=== PATIENT | female | born 1960 ===

== ENCOUNTER 2016-07-31 18:33 | Emergency (ER) | payer MEDICAID ==
[2016-07-31 18:39] VITALS: RESP 20; TEMP 98; O2SAT 99
--- NOTE | 2016-07-31 20:55 | ED PDOC ---
HPI: Headache Time Seen by Provider: 07/31/16 20:52 Chief Complaint (Nursing): Headache Chief Complaint (Provider): h/a History Per: Patient Additional Complaint(s): pt w/ hx bca in remission 5 years, asthma, htn presents c/o intermittant h/a for the past month. pain is pressurelike, L frontal w/ associated sneezing, congestion and also disequilibrium. no associated fever, blurred vision, neck pain, cp, sob, abd pain, n/v, numbness, weakness to extremities. Past Medical History Reviewed: Historical Data, Nursing Documentation, Vital Signs Vital Signs: Last Vital Signs Temp 98.0 F 07/31/16 18:37 Pulse 70 07/31/16 18:37 Resp 20 07/31/16 18:37 BP 155/102 H 07/31/16 18:37 Pulse Ox 99 07/31/16 18:37 - Medical History PMH: Asthma, Colonic Polyps, HTN, Hypercholesterolemia, Osteoporosis Denies: Chronic Kidney Disease Other PMH: bca x 2. treated with chemotherapy - Family History Family History: States: Unknown Family Hx - Social History Current smoker - smoking cessation education provided: No Alcohol: None Drugs: Denies - Immunization History Hx Tetanus Toxoid Vaccination: No Hx Influenza Vaccination: No Hx Pneumococcal Vaccination: No - Home Medications Home Medications: Ambulatory Orders Medication Instructions Recorded Acetaminophen [Tylenol 325mg tab] 325 mg PO Q6 #20 tab 07/31/16 Albuterol HFA [Ventolin HFA 90 1 puff INH DAILY 07/31/16 mcg/actuation (8 g)] Alendronate [Fosamax] 1 tab PO DAILY 07/31/16 Anastrozole [Anastrozole] 1 tab PO DAILY 07/31/16 Bisoprolol/HCTZ [Ziac 5-6.25 mg] 1 tab PO DAILY 07/31/16 Budesonide/Formoterol Fumarate 1 10 INH DAILY 07/31/16 [Symbicort 160-4.5 Mcg Inhaler] - Allergies Allergies/Adverse Reactions: Allergies Allergy/AdvReac Type Severity Reaction Status Date / Time garlic Allergy RASH Verified 05/26/16 14:52 tash Allergy RASH Verified 05/26/16 14:52 [place] Allergy RASH Verified 05/26/16 14:52 Review of Systems ROS Statement: Except As Marked, All Systems Reviewed And Found Negative Neurological: Positive for: Headache, Other (disequilibrium). Negative for: Weakness, Numbness, Incoordination, Change in Speech, Confusion, Dizziness Physical Exam - Reviewed Nursing Documentation Reviewed: Yes Vital Signs Reviewed: Yes - Physical Exam Appears: Positive for: Well (happy, pleasant ), Non-toxic, No Acute Distress Head Exam: Positive for: ATRAUMATIC, NORMAL INSPECTION, NORMOCEPHALIC Skin: Positive for: Normal Color, Warm, DRY Eye Exam: Positive for: EOMI, Normal appearance, PERRL ENT: Positive for: Normal ENT Inspection, Other (L frontal sinus tenderness) Neck: Positive for: Normal, Painless ROM Cardiovascular/Chest: Positive for: Regular Rate, Rhythm Respiratory: Positive for: CNT, Normal Breath Sounds Gastrointestinal/Abdominal: Positive for: Normal Exam, Bowel Sounds, Soft. Negative for: Tenderness Extremity: Positive for: Normal ROM. Negative for: Tenderness Neurologic/Psych: Positive for: Alert, retrimmer II-XII, Oriented, Gait (steady). Negative for: Motor/Sensory Deficits - ECG O2 Sat by Pulse Oximetry: 99 Medical Decision Making Medical Decision Making: ct head read as neg. will d/c home to f/u pmd. Disposition - Clinical Impression Clinical Impression: Headache - Patient ED Disposition Is Patient to be Admitted: No - Disposition Referrals: [facility] [Outside] Disposition: Routine/Home Disposition Time: 22:20 Condition: GOOD Prescriptions: Acetaminophen [Tylenol 325mg tab] 325 mg PO Q6 #20 tab Instructions: Acute Headache (ED) Forms: [facility] ED School/Work Excuse
[2016-07-31 21:31] VITALS: BP 119/68
[2016-07-31 21:32] VITALS: PULSE 62
--- NOTE | 2016-07-31 21:56 | CT ---
EXAM: CT Head Without Intravenous Contrast. CLINICAL HISTORY: 55 years old, female; Pain; Headache; Headache not specified; Patient HX: HX of ca. Breast; Additional info: Headache, HX bca TECHNIQUE: Axial computed tomography images of the head/brain without intravenous contrast. This CT exam was performed using one or more of the following dose reduction techniques: automated exposure control, adjustment of the mA and/or kV according to patient size, and/or use of iterative reconstruction technique. Coronal and sagittal reformatted images were created and reviewed. COMPARISON: CT - HEAD^HEAD W WOUT (ADULT) 08/19/2010 1:12:53 PM FINDINGS: Brain: No intracranial hemorrhage. No mass. No definite edema. Ventricles: No hydrocephalus. Bones/joints: No acute fracture. Soft tissues: Unremarkable. Sinuses: No acute sinusitis. Mastoid air cells: No mastoid effusion. Orbits: Unremarkable as visualized. IMPRESSION: 1. No acute intracranial abnormality. If symptoms persist, suggest MRI for further evaluation. 2. Incidental/non-acute findings are described above.
== END 2016-07-31 22:32 | disposition home or self-care (01) ==
LOC: H.ER 18:33
DX: R51 Headache (principal); E78.00 Pure hypercholesterolemia, unspecified; I10 Essential (primary) hypertension

== ENCOUNTER 2016-08-19 20:33 | Emergency (ER) | payer MEDICAID ==
[2016-08-19 20:40] VITALS: BP 149/96; PULSE 59; TEMP 98.2
[2016-08-19] MEDS ORDERED: Albuterol-Ipratrop 3 mg / 0.5 (3 ml) UD ONE (21:00)
[2016-08-19] MEDS ORDERED: Albuterol 0.083% Inhal Sol (2.5 mg/3 mL) UD INH STA (21:00)
[2016-08-19 21:12] VITALS: RESP 16
--- NOTE | 2016-08-19 21:23 | ED PDOC ---
HPI: SOB/CHF/COPD Time Seen by Provider: 08/19/16 20:53 Chief Complaint (Nursing): Shortness Of Breath Chief Complaint (Provider): Wheezing History Per: Patient History/Exam Limitations: no limitations Onset/Duration Of Symptoms: Hrs Current Symptoms Are (Timing): Still Present Additional Complaint(s): 20:53 Elvira Pelaez is a 55 year old female with a history of asthma that presents to the ED with a chief complaint of wheezing. Patient states that a few hours ago, she began wheezing and used Advair, but her symptoms did not improve immediately, which prompted her ED visit. She reports that her symptoms have improved since onset, and she denies any fever or chest pain. Of Note: Patient states that she does not have a rescue inhaler. PMD: Toshia Holland Past Medical History Reviewed: Historical Data, Nursing Documentation, Vital Signs Vital Signs: Last Vital Signs Temp 98.2 F 08/19/16 20:38 Pulse 59 L 08/19/16 20:38 Resp 16 08/19/16 21:09 BP 149/96 H 08/19/16 20:38 Pulse Ox 97 08/19/16 21:26 - Medical History PMH: Asthma, Colonic Polyps, HTN, Hypercholesterolemia, Osteoporosis Denies: Chronic Kidney Disease - Family History Family History: States: Unknown Family Hx - Immunization History Hx Tetanus Toxoid Vaccination: No Hx Influenza Vaccination: No Hx Pneumococcal Vaccination: No - Home Medications Home Medications: Ambulatory Orders Medication Instructions Recorded Acetaminophen [Tylenol 325mg tab] 325 mg PO Q6 #20 tab 07/31/16 Albuterol HFA [Ventolin HFA 90 1 puff INH DAILY 07/31/16 mcg/actuation (8 g)] Alendronate [Fosamax] 1 tab PO DAILY 07/31/16 Anastrozole [Anastrozole] 1 tab PO DAILY 07/31/16 Bisoprolol/HCTZ [Ziac 5-6.25 mg] 1 tab PO DAILY 07/31/16 Budesonide/Formoterol Fumarate 1 10 INH DAILY 07/31/16 [Symbicort 160-4.5 Mcg Inhaler] Albuterol HFA [Ventolin HFA 90 2 puff IH [id number] PRN #60 puff 08/19/16 mcg/actuation (8 g)] - Allergies Allergies/Adverse Reactions: Allergies Allergy/AdvReac Type Severity Reaction Status Date / Time garlic Allergy RASH Verified 08/19/16 20:40 tash Allergy RASH Verified 08/19/16 20:40 [place] Allergy RASH Verified 08/19/16 20:40 Review of Systems Constitutional: Negative for: Fever Cardiovascular: Negative for: Chest Pain Respiratory: Positive for: Wheezing Physical Exam - Reviewed Nursing Documentation Reviewed: Yes Vital Signs Reviewed: Yes - Physical Exam Appears: Positive for: Non-toxic, No Acute Distress Head Exam: Positive for: ATRAUMATIC, NORMOCEPHALIC Skin: Positive for: Normal Color, Warm ENT: Positive for: Normal ENT Inspection Cardiovascular/Chest: Positive for: Regular Rate, Rhythm. Negative for: Murmur Respiratory: Positive for: Normal Breath Sounds. Negative for: Wheezing Neurologic/Psych: Positive for: Alert, Oriented - ECG O2 Sat by Pulse Oximetry: 97 (RA) Pulse Ox Interpretation: Normal Medical Decision Making Medical Decision Makin:00 Initial Impression: Exacerbation of Asthma Initial Plan: * Albuterol 2.5 mg INH * Peak Flow Pre/Post Tx * Reevaluation Scribe Attestation: Documented by Sun Baird, acting as a scribe for Rafi Louie PA-C. Provider Scribe Attestation: All medical record entries made by the Scribe were at my direction and personally dictated by me. I have reviewed the chart and agree that the record accurately reflects my personal performance of the history, physical exam, medical decision making, and the department course for this patient. I have also personally directed, reviewed, and agree with the discharge instructions and disposition. Disposition - Clinical Impression Clinical Impression: Asthma - Patient ED Disposition Is Patient to be Admitted: No - Disposition Disposition: Routine/Home Disposition Time: 21:38 Condition: STABLE Additional Instructions: Follow up with your PMD in 2 days for further evaluation. Prescriptions: Albuterol HFA [Ventolin HFA 90 mcg/actuation (8 g)] 2 puff IH [id number] PRN #60 puff PRN Reason: Wheezing Instructions: Asthma (ED)
[2016-08-19 21:45] VITALS: O2SAT 98
== END 2016-08-19 21:00 | disposition home or self-care (01) ==
LOC: H.ER 20:33
DX: J45.901 Unspecified asthma with (acute) exacerbation (principal); E78.00 Pure hypercholesterolemia, unspecified; I10 Essential (primary) hypertension

== ENCOUNTER 2016-08-28 20:44 | Emergency (ER) | payer MEDICAID ==
[2016-08-28 20:48] VITALS: BP 146/96; PULSE 56; RESP 16; TEMP 98.2; O2SAT 98
[2016-08-28] MEDS ORDERED: Albuterol-Ipratrop 3 mg / 0.5 (3 ml) UD INH STA (21:07)
[2016-08-28] MEDS ORDERED: Albuterol-Ipratrop 3 mg / 0.5 (3 ml) UD ONE (21:19)
--- NOTE | 2016-08-28 21:32 | ED PDOC ---
HPI: SOB/CHF/COPD Time Seen by Provider: 08/28/16 21:01 Chief Complaint (Nursing): Shortness Of Breath Chief Complaint (Provider): short of breath History Per: Patient History/Exam Limitations: no limitations Additional Complaint(s): 55yo female complaining of shortness of breath and pleuritic chest pain for the past 4 hours. She has a dry cough. No fever or palpitations. She used her inhaler without relief. Past Medical History Reviewed: Historical Data, Nursing Documentation, Vital Signs Vital Signs: Last Vital Signs Temp 98.2 F 08/28/16 20:47 Pulse 56 L 08/28/16 20:47 Resp 16 08/29/16 00:32 BP 146/96 H 08/28/16 20:47 Pulse Ox 98 08/28/16 23:52 - Medical History PMH: Asthma, Colonic Polyps, HTN, Hypercholesterolemia, Osteoporosis Denies: Chronic Kidney Disease - Family History Family History: States: Unknown Family Hx - Social History Drugs: Denies - Immunization History Hx Tetanus Toxoid Vaccination: No Hx Influenza Vaccination: No Hx Pneumococcal Vaccination: No - Home Medications Home Medications: Ambulatory Orders Medication Instructions Recorded Acetaminophen [Tylenol 325mg tab] 325 mg PO Q6 #20 tab 07/31/16 Albuterol HFA [Ventolin HFA 90 1 puff INH DAILY 07/31/16 mcg/actuation (8 g)] Alendronate [Fosamax] 1 tab PO DAILY 07/31/16 Anastrozole [Anastrozole] 1 tab PO DAILY 07/31/16 Bisoprolol/HCTZ [Ziac 5-6.25 mg] 1 tab PO DAILY 07/31/16 Budesonide/Formoterol Fumarate 1 10 INH DAILY 07/31/16 [Symbicort 160-4.5 Mcg Inhaler] Albuterol HFA [Ventolin HFA 90 2 puff IH [id number] PRN #60 puff 08/19/16 mcg/actuation (8 g)] Albuterol HFA [Ventolin HFA 90 2 puff IH [id number] PRN #1 bottle 08/28/16 mcg/actuation (8 g)] Prednisone 50 mg PO DAILY #4 tab 08/28/16 - Allergies Allergies/Adverse Reactions: Allergies Allergy/AdvReac Type Severity Reaction Status Date / Time garlic Allergy RASH Verified 08/19/16 20:40 [place]ash Allergy RASH Verified 08/19/16 20:40 [place] Allergy RASH Verified 08/19/16 20:40 Review of Systems ROS Statement: Except As Marked, All Systems Reviewed And Found Negative Constitutional: Negative for: Fever Cardiovascular: Negative for: Palpitations Respiratory: Positive for: Cough, Shortness of Breath, Pleuritic Pain. Negative for: Sputum Physical Exam - Reviewed Nursing Documentation Reviewed: Yes Vital Signs Reviewed: Yes - Physical Exam Appears: Positive for: Well, Non-toxic, No Acute Distress Head Exam: Positive for: ATRAUMATIC, NORMAL INSPECTION, NORMOCEPHALIC Skin: Positive for: Warm, Dry Eye Exam: Positive for: EOMI, PERRL ENT: Positive for: Normal ENT Inspection Cardiovascular/Chest: Positive for: Regular Rate, Rhythm Respiratory: Positive for: Normal Breath Sounds, Other (speaking full sentences) . Negative for: Rales, Rhonchi, Wheezing Gastrointestinal/Abdominal: Positive for: Soft. Negative for: Tenderness Extremity: Positive for: Normal ROM Neurologic/Psych: Positive for: Alert, Oriented - Laboratory Results Result Diagrams: 08/28/16 21:45 08/28/16 21:45 - ECG O2 Sat by Pulse Oximetry: 98 Medical Decision Making Medical Decision Makin EKG, CXR, duoneb, labs ordered. 23:49 EKG reviewed with sinus bradycardia at 48 rpm. Upon review of old EKGs, sinus dennise has been persistent in the past. Pt will be discharged routinely with Abx for Albuterol and Prednisone. Encouraged pt to schedule a follow-up with PMD within 2-3 days. Advised to return if condition persists or worsen. Condition is stable for discharge. Clinical Impression- Asthma Disposition - Clinical Impression Clinical Impression: Asthma - Disposition Referrals: Toshia Holland MD [Family Provider] - Disposition: Routine/Home Disposition Time: 23:45 Condition: IMPROVED Prescriptions: Albuterol HFA [Ventolin HFA 90 mcg/actuation (8 g)] 2 puff IH [id number] PRN #1 bottle PRN Reason: Shortness Of Breath Prednisone 50 mg PO DAILY #4 tab Instructions: Asthma (ED) Additional Comments - Additional Comments Additional Comments: Scribe Attestation: Documented by Trenton Rodriguez acting as a scribe for Flory Rodrigues MD. Scribe Attestation: All medical record entries made by the Scribe were at my direction and personally dictated by me. I have reviewed the chart and agree that the record accurately reflects my personal performance of the history, physical exam, medical decision making, and the department course for this patient. I have also personally directed, reviewed, and agree with the discharge instructions and disposition.
[2016-08-28 21:49] LABS: BASO # 0.1 K/uL (0.0-0.2); BASO % 0.6 % (0.0-2.0); EOS # 0.4 K/uL (0.0-0.7); EOS % 3.8 % (0.0-4.0); LYMPH # 4.6 K/uL (1.0-4.3); MEAN CELL VOLUME 85.4 fl (81.0-99.0); MEAN CORPUSCULAR HEMOGLOBIN 28.7 pg (27.0-31.0); MEAN CORPUSCULAR HGB CONC 33.6 g/dL (33.0-37.0); MEAN PLATELET VOLUME 11.9 fl (7.2-11.7); MONO # 0.6 K/uL (0.0-0.8); NEUT # 3.8 K/uL (1.8-7.0); NEUT % 40.6 % (50.0-75.0); RED CELL DISTRIBUTION WIDTH 13.3 % (11.5-14.5); WHITE BLOOD COUNT 9.5 K/uL (4.8-10.8)
[2016-08-28 22:04] LABS: ALB/GLOB RATIO 1.3 (1.0-2.1); ALKALINE PHOSPHATASE 81 U/L (38-126); ALT/SGPT 48 U/L (9-52); AST/SGOT 30 U/L (14-36); BILIRUBIN,TOTAL 0.3 mg/dl (0.2-1.3); BLOOD UREA NITROGEN 18 mg/dl (7-17); CALCIUM 10.2 mg/dL (8.4-10.2); CARBON DIOXIDE 32 mmol/L (22-30); CHLORIDE 99 mmol/L (98-107); GFR AFRICAN-AMERICAN > 60; GLUCOSE,RANDOM 91 mg/dL (65-105); POTASSIUM 3.9 MMOL/L (3.6-5.0); SODIUM 144 mmol/l (132-148); TOTAL PROTEIN 7.6 G/DL (6.3-8.2)
[2016-08-28 22:11] LABS: PARTIAL THROMBOPLASTIN TIME 25.8 SECONDS (23.3-32.5)
--- NOTE | 2016-08-29 08:23 | CARD ---
APPROVED REPORT EKG Measurement Heart [id number] <Conclusion> Sinus bradycardia Moderate voltage criteria for LVH, may be normal variant Borderline ECG
--- NOTE | 2016-08-29 08:36 | RAD ---
HISTORY: SOB COMPARISON: Comparison is made to the previous study dated 05/26/2016 FINDINGS: LUNGS: Mild pulmonary vascular congestion noted. PLEURA: No significant pleural effusion identified, no pneumothorax apparent. CARDIOVASCULAR: Normal. OSSEOUS STRUCTURES: No significant abnormalities. VISUALIZED UPPER ABDOMEN: Normal. OTHER FINDINGS: None. IMPRESSION: Suspicious for mild pulmonary vascular congestion.
== END 2016-08-28 23:45 | disposition home or self-care (01) ==
LOC: H.ER 20:44
DX: J45.909 Unspecified asthma, uncomplicated (principal); R07.81 Pleurodynia; I10 Essential (primary) hypertension; R05 Cough; R00.1 Bradycardia, unspecified

== ENCOUNTER 2017-05-20 20:59 | Emergency (ER) | payer MEDICAID ==
[2017-05-20 21:03] VITALS: BP 144/95; PULSE 59; RESP 21; TEMP 98.8; O2SAT 98
[2017-05-20] MEDS ORDERED: Albuterol-Ipratrop 3 mg / 0.5 (3 ml) UD INH STA ×2 (21:40→21:41)
[2017-05-20 22:12] LABS: BASO # 0.1 K/uL (0.0-0.2); BASO % 1.2 % (0.0-2.0); EOS # 0.2 K/uL (0.0-0.7); EOS % 2.5 % (0.0-4.0); LYMPH # 4.6 K/uL (1.0-4.3); LYMPH % 46.7 % (20.0-40.0); MEAN CELL VOLUME 86.1 fl (81.0-99.0); MEAN CORPUSCULAR HEMOGLOBIN 28.8 pg (27.0-31.0); MEAN CORPUSCULAR HGB CONC 33.4 g/dL (33.0-37.0); MEAN PLATELET VOLUME 12.4 fl (7.2-11.7); MONO # 0.7 K/uL (0.0-0.8); MONO % 7.6 % (0.0-10.0); NEUT # 4.1 K/uL (1.8-7.0); NRBC % 0.1 % (0.0-0.0); RBC 4.52 Mil/uL (3.80-5.20); RED CELL DISTRIBUTION WIDTH 14.1 % (11.5-14.5); WHITE BLOOD COUNT 9.8 K/uL (4.8-10.8)
[2017-05-20 22:24] LABS: BLOOD UREA NITROGEN 20 mg/dl (7-17); CALCIUM 9.6 mg/dL (8.4-10.2); GFR AFRICAN-AMERICAN > 60; GFR NON-AFRICAN AMERICAN 57
--- NOTE | 2017-05-21 00:02 | ED PDOC ---
HPI: SOB/CHF/COPD Time Seen by Provider: 05/20/17 21:16 Chief Complaint (Nursing): Shortness Of Breath Chief Complaint (Provider): shortness of breath History Per: Patient History/Exam Limitations: no limitations Onset/Duration Of Symptoms: Days (x1) Current Symptoms Are (Timing): Still Present Additional Complaint(s): 56 year old female with previous medical history of asthma, hypertension and hypercholesterolemia, who presents to the emergency department with a complaint of shortness of breath associated with chest tightness ongoing for 1 day. Patient stated she used her albuterol at home with no relief of symptoms. Denied any further medical complaints. PMD: Shawn Nicole MD Past Medical History Reviewed: Historical Data, Nursing Documentation, Vital Signs Vital Signs: Last Vital Signs Temp 98.8 F 05/20/17 21:01 Pulse 59 L 05/20/17 21:01 Resp 21 05/20/17 21:28 BP 144/95 H 05/20/17 21:01 Pulse Ox 98 05/21/17 00:08 - Medical History PMH: Asthma, Colonic Polyps, HTN, Hypercholesterolemia, Osteoporosis Denies: Chronic Kidney Disease - Surgical History Surgical History: Denies: No Surg Hx - Family History Family History: States: Unknown Family Hx - Social History Current smoker - smoking cessation education provided: No Alcohol: None Drugs: Denies - Immunization History Hx Tetanus Toxoid Vaccination: No Hx Influenza Vaccination: Yes Hx Pneumococcal Vaccination: No - Home Medications Home Medications: Ambulatory Orders Medication Instructions Recorded Albuterol HFA [Ventolin HFA 90 2 puff IH [id number] PRN 12/29/16 mcg/actuation (8 g)] Alendronate [Fosamax] 70 mg PO QD7 12/29/16 Anastrozole 1 mg PO DAILY 12/29/16 Atorvastatin [Lipitor] 20 mg PO DAILY 12/29/16 Bisoprolol/HCTZ [Ziac 10-6.25 mg] 1 tab PO DAILY 12/29/16 Fluticasone Nasal [Flonase] 1 spr NS DAILY PRN 12/29/16 Fluticasone/Salmeterol [Advair 1 each IH DAILY PRN 12/29/16 250-50 Diskus] Aspirin 325 mg PO DAILY 02/22/17 Calcium Carbonate/Vitamin D3 1 each PO DAILY 02/22/17 [Caltrate 600 + D Tablet] [id number]-[id number] Ethyl Esters 1 GM 1 gm PO DAILY 02/22/17 [Lovaza] Acetaminophen/Butalbital/Caf 1 tab PO DAILY PRN 03/26/17 [Fioricet] Albuterol HFA [Ventolin HFA 90 2 puff IH [id number] #1 puff 03/26/17 mcg/actuation (8 g)] Azithromycin [Zithromax Tri-Esteban] 500 mg PO DAILY #3 tablet 03/26/17 Albuterol HFA [Ventolin HFA 90 1 - 2 puff IH Q6 PRN #1 inhaler 05/21/17 mcg/actuation (8 g)] Methylprednisolone [Medrol Dosepak] 4 mg PO ASDIR #1 pkg 05/21/17 - Allergies Allergies/Adverse Reactions: Allergies Allergy/AdvReac Type Severity Reaction Status Date / Time garlic Allergy RASH Verified 05/20/17 21:03 tash Allergy RASH Verified 05/20/17 21:03 [id number] Allergy RASH Verified 05/20/17 21:03 Review of Systems ROS Statement: Except As Marked, All Systems Reviewed And Found Negative Cardiovascular: Positive for: Chest Pain (tightness) Respiratory: Positive for: Shortness of Breath Physical Exam - Reviewed Nursing Documentation Reviewed: Yes Vital Signs Reviewed: Yes - Physical Exam Appears: Positive for: Well, Non-toxic, No Acute Distress Head Exam: Positive for: ATRAUMATIC, NORMAL INSPECTION, NORMOCEPHALIC Skin: Positive for: Normal Color Eye Exam: Positive for: Normal appearance ENT: Positive for: Normal ENT Inspection Neck: Positive for: Normal, Painless ROM Cardiovascular/Chest: Positive for: Regular Rate, Rhythm, Chest Non Tender Respiratory: Positive for: Decreased Breath Sounds, Wheezing (expiratory bilaterally). Negative for: Normal Breath Sounds, Respiratory Distress Gastrointestinal/Abdominal: Positive for: Normal Exam, Soft. Negative for: Tenderness Extremity: Positive for: Normal ROM (upper/lower). Negative for: Pedal Edema ( bilateral), Calf Tenderness (bilateral) Neurologic/Psych: Positive for: Alert (x3), Oriented - Laboratory Results Result Diagrams: 05/20/17 22:06 05/20/17 22:06 - ECG O2 Sat by Pulse Oximetry: 98 (RA) Pulse Ox Interpretation: Normal Medical Decision Making Medical Decision Making: Initial Impression: Shortness of breath with asthma exacerbation Initial Plan: * BMP * CBC * Duoneb 3ml INH * Solu-medrol 125mg IVP Time: 106 --Upon provider reevaluation, patient is feeling improvement, medically stable and requires no further treatment in the ED at this time. Patient will be discharged home with Rx for Ventolin HFA and Medrol dose pack. Counseling was provided and all questions were answered regarding diagnosis and need for follow up with PMD. There is agreement to discharge plan. Return if symptoms persist or worsen. Clinical Impression: asthma exacerbation Scribe Attestation: Documented by Natalia Park, acting as a scribe for Hamilton Blake MD. Provider Scribe Attestation: All medical record entries made by the Scribe were at my direction and personally dictated by me. I have reviewed the chart and agree that the record accurately reflects my personal performance of the history, physical exam, medical decision making, and the department course for this patient. I have also personally directed, reviewed, and agree with the discharge instructions and disposition. Disposition - Clinical Impression Clinical Impression: Asthma - Patient ED Disposition Is Patient to be Admitted: No Counseled Patient/Family Regarding: Studies Performed, Diagnosis, Need For Followup, Rx Given - Disposition Disposition: Routine/Home Disposition Time: 01:07 Condition: IMPROVED Prescriptions: Albuterol HFA [Ventolin HFA 90 mcg/actuation (8 g)] 1 - 2 puff IH Q6 PRN #1 inhaler PRN Reason: Shortness Of Breath Methylprednisolone [Medrol Dosepak] 4 mg PO ASDIR #1 pkg Instructions: Asthma (ED) Forms: [employer] [employer] ([place])
== END 2017-05-21 01:39 | disposition home or self-care (01) ==
LOC: H.ER 20:59
DX: J45.901 Unspecified asthma with (acute) exacerbation (principal); E78.00 Pure hypercholesterolemia, unspecified; I10 Essential (primary) hypertension; J44.9 Chronic obstructive pulmonary disease, unspecified; M81.0 Age-related osteoporosis without current pathological fracture; Z79.82 Long term (current) use of aspirin
CPT/HCPCS: 80048; 85025; 96374; 99283; J2930

== ENCOUNTER 2017-06-21 21:36 | Emergency (ER) | payer MEDICAID ==
[2017-06-21 22:03] VITALS: BP 126/79; RESP 17; TEMP 98.5; O2SAT 96
[2017-06-21] MEDS ORDERED: guaiFENesin 200 mg/10 ml Syrup UD PO ONE (22:36)
[2017-06-21] MEDS ORDERED: Albuterol-Ipratrop 3 mg / 0.5 (3 ml) UD IH STA (22:36)
[2017-06-21] MEDS ORDERED: Albuterol-Ipratrop 3 mg / 0.5 (3 ml) UD ONE (22:40)
--- NOTE | 2017-06-22 00:49 | ED PDOC ---
HPI: SOB/CHF/COPD Time Seen by Provider: 06/21/17 22:09 Chief Complaint (Nursing): Shortness Of Breath Chief Complaint (Provider): Cough History Per: Patient History/Exam Limitations: no limitations Onset/Duration Of Symptoms: Days (x3) Current Symptoms Are (Timing): Still Present Initiating Event: Upper Respiratory Illness Associated Symptoms: denies: Fever, Leg/Calf Pain, Ankle/Leg Swelling Additional Complaint(s): 56 yo F w/ PMH of asthma and HTN, complains of cough, beginning 3 days ago and associated with chest pain only when she coughs. Otherwise: (-) fever, (-) chills, (-) chest pain on exertion, (-) dyspnea, (-) hemoptysis, (-) upper back pain, (-) travel, (-) recent prolonged immobility. PCP: Dr. Nicole Past Medical History Reviewed: Historical Data, Nursing Documentation, Vital Signs Vital Signs: Last Vital Signs Temp 98.5 F 06/21/17 22:01 Pulse 61 06/22/17 01:06 Resp 17 06/21/17 22:01 BP 126/79 06/21/17 22:01 Pulse Ox 96 06/22/17 01:06 - Medical History PMH: Asthma, Colonic Polyps, HTN, Hypercholesterolemia, Osteoporosis Denies: Chronic Kidney Disease - Family History Family History: States: Unknown Family Hx - Social History Current smoker - smoking cessation education provided: No Ex-Smoker (has not smoked in the last 12 months): No - Immunization History Hx Tetanus Toxoid Vaccination: No Hx Influenza Vaccination: Yes Hx Pneumococcal Vaccination: No - Home Medications Home Medications: Ambulatory Orders Medication Instructions Recorded Albuterol HFA [Ventolin HFA 90 2 puff IH [id number] PRN 12/29/16 mcg/actuation (8 g)] Alendronate [Fosamax] 70 mg PO QD7 12/29/16 Anastrozole 1 mg PO DAILY 12/29/16 Atorvastatin [Lipitor] 20 mg PO DAILY 12/29/16 Bisoprolol/HCTZ [Ziac 10-6.25 mg] 1 tab PO DAILY 12/29/16 Fluticasone Nasal [Flonase] 1 spr NS DAILY PRN 12/29/16 Fluticasone/Salmeterol [Advair 1 each IH DAILY PRN 12/29/16 250-50 Diskus] Aspirin 325 mg PO DAILY 02/22/17 Calcium Carbonate/Vitamin D3 1 each PO DAILY 02/22/17 [Caltrate 600 + D Tablet] Dvpwb-2-[id number] Ethyl Esters 1 GM 1 gm PO DAILY 02/22/17 [Lovaza] Acetaminophen/Butalbital/Caf 1 tab PO DAILY PRN 03/26/17 [Fioricet] Albuterol HFA [Ventolin HFA 90 2 puff IH [id number] #1 puff 03/26/17 mcg/actuation (8 g)] Azithromycin [Zithromax Tri-Esteban] 500 mg PO DAILY #3 tablet 03/26/17 Albuterol HFA [Ventolin HFA 90 1 - 2 puff IH Q6 PRN #1 inhaler 05/21/17 mcg/actuation (8 g)] Methylprednisolone [Medrol Dosepak] 4 mg PO ASDIR #1 pkg 05/21/17 Albuterol 0.083% [Albuterol 3 ml IH Q4 #100 neb 06/21/17 Sulfate 3 Ml] Guaifenesin 400 mg PO QID #20 tablet 06/21/17 Nebulizer [Aeroeclipse II] 1 each MC DAILY #1 each 06/21/17 - Allergies Allergies/Adverse Reactions: Allergies Allergy/AdvReac Type Severity Reaction Status Date / Time garlic Allergy RASH Verified 05/20/17 21:03 tash Allergy RASH Verified 05/20/17 21:03 [email or web address] Allergy RASH Verified 05/20/17 21:03 Curb-65 Severity Score - CURB-65 Severity Score Confusion: No Respiratory Rate greater than/equal to 30: No Systolic BP <90 or Diastolic BP less than/equal 60mmHg: No Age >64: No Curb-65 Score: 0 Percentage 30-day mortality: 0.6% Wells Criteria for PE - Wells Criteria for Pulmonary Embolism Heart Rate >100: No Hemoptysis: No Total Score: 0 Review of Systems ROS Statement: Except As Marked, All Systems Reviewed And Found Negative Constitutional: Negative for: Fever Cardiovascular: Positive for: Chest Pain (secondary to cough) Respiratory: Positive for: Cough. Negative for: Hemoptysis Musculoskeletal: Negative for: Leg Pain ((-) leg swelling) Physical Exam - Physical Exam Comments: GENERAL: Patient is AAOx3, in no acute distress, speaking full sentences, breathing well. SKIN: Warm, dry; (-) cyanosis. EYES: (-) conjunctival pallor. ENMT: Mucous membranes moist. Airway patent: (-) stridor. Pharynx: (-) swelling, (-) erythema, (-) exudate. NECK: (-) tenderness, (-) stiffness, (-) lymphadenopathy. CHEST AND RESPIRATORY: (-) rhonchi, (-) rales, (-) wheezes, (-) pleural rub; breath sounds equal bilaterally. HEART AND CARDIOVASCULAR: (-) irregularity; (-) murmur, (-) gallop. ABDOMEN AND GI: Soft; (-) tenderness. EXTREMITIES: (-) deformity; (-) edema. NEURO AND PSYCH: Mental status as above. Cranial nerves grossly intact; strength symmetric. - ECG ECG Rhythm: Positive for: Sinus Rhythm Rate: 61 O2 Sat by Pulse Oximetry: 96 (RA) Pulse Ox Interpretation: Normal Medical Decision Making Medical Decision Makin Initial plan: * Duonebs 3mL IH * Robitussing 400mg PO * Re-eval On re-evaluation patient is feeling better and will be discharged home. Advised to follow up with primary care physician in 1-2 days without fail. Advised to take medication as prescribed. Return to the emergency room at any time for any new or worsening symptoms. Patient states she fully agrees with and understands discharge instructions. States that she agrees with the plan and disposition. Verbalized and repeated discharge instructions and plan. I have given the patient opportunity to ask any additional questions. Scribe Attestation: Documented by Janae Jones acting as a scribe for Lisa Moser PA-C. MD Scribe Attestation: All medical record entries made by the Scribe were at my direction and personally dictated by me. I have reviewed the chart and agree that the record accurately reflects my personal performance of the history, physical exam, medical decision making, and the department course for this patient. I have also personally directed, reviewed, and agree with the discharge instructions and disposition. Disposition - Clinical Impression Clinical Impression: Cough - Patient ED Disposition Is Patient to be Admitted: No Counseled Patient/Family Regarding: Diagnosis, Need For Followup, Rx Given - Disposition Disposition: Routine/Home Disposition Time: 22:15 Condition: STABLE Additional Instructions: Thank you for letting us take care of you today. You were treated for cough. The emergency medical care you received today was directed at your acute symptoms. If you were prescribed any medication, please fill it and take as directed. It may take several days for your symptoms to resolve. Return to the Emergency Department if your symptoms worsen, do not improve, or if you have any other problems. Please contact your doctor in 2 days for re-evaluation and follow up / or call one of the physicians/clinics you have been referred to that are listed on the Patient Visit Information form that is included in your discharge packet. Bring any paperwork you were given at discharge with you along with any medications you are taking to your follow up visit. Our treatment cannot replace ongoing medical care by a primary care provider (PCP) outside of the emergency department. Thank you for allowing the [email or web address] team to be part of your care today. 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
[2017-06-22 00:53] VITALS: PULSE 61
== END 2017-06-21 23:15 | disposition home or self-care (01) ==
LOC: H.ER 21:36
DX: J06.9 Acute upper respiratory infection, unspecified (principal); I10 Essential (primary) hypertension; E78.00 Pure hypercholesterolemia, unspecified; Z79.82 Long term (current) use of aspirin

== ENCOUNTER 2018-02-19 15:21 | Emergency (ER) | payer MEDICAID ==
[2018-02-19] MEDS ORDERED: Albuterol-Ipratrop 3 mg / 0.5 (3 ml) UD ONE (16:26)
--- NOTE | 2018-02-19 16:26 | ED PDOC ---
HPI: SOB/CHF/COPD Time Seen by Provider: 02/19/18 15:43 Chief Complaint (Nursing): Shortness Of Breath Chief Complaint (Provider): Shortness Of Breath History Per: Patient History/Exam Limitations: no limitations Onset/Duration Of Symptoms: Days (x7) Associated Symptoms: Chest Pain (intermittent). denies: Fever Additional Complaint(s): 57 years old female with history of asthma, hypertension, cervical cancer and breast cancer presents to ER for evaluation of shortness of breath ongoing for a week. Patient reports worsening of symptoms when laying down or ambulating. She reports associated cough and chest pain intermittently. Patient states she has seen a Wallpaper Printer Helper before. She denies any leg swelling, fever or headache, having chemotherapy or radiation. PMD: Shawn Nicole Past Medical History Reviewed: Historical Data, Nursing Documentation, Vital Signs Vital Signs: Last Vital Signs Temp 98.7 F 02/19/18 15:34 Pulse 97 H 02/19/18 15:34 Resp 16 02/19/18 15:34 BP 168/105 H 02/19/18 15:34 Pulse Ox 97 02/19/18 15:34 - Medical History PMH: Asthma, Colonic Polyps, HTN, Hypercholesterolemia, Osteoporosis Denies: Chronic Kidney Disease Other PMH: Cervical cancer. Breast cancer - Surgical History Other surgeries: Mastectomy of left breast. - Family History Family History: States: Unknown Family Hx - Immunization History Hx Tetanus Toxoid Vaccination: No Hx Influenza Vaccination: Yes Hx Pneumococcal Vaccination: No - Home Medications Home Medications: Ambulatory Orders Medication Instructions Recorded Alendronate [Fosamax] 70 mg PO QD7 12/29/16 Anastrozole 1 mg PO DAILY 12/29/16 Atorvastatin [Lipitor] 20 mg PO DAILY 12/29/16 Bisoprolol/HCTZ [Ziac 10-6.25 mg] 1 tab PO DAILY 12/29/16 Fluticasone Nasal [Flonase] 1 spr NS DAILY PRN 12/29/16 Fluticasone/Salmeterol [Advair 1 each IH DAILY PRN 12/29/16 250-50 Diskus] Aspirin 325 mg PO DAILY 02/22/17 Calcium Carbonate/Vitamin D3 1 each PO DAILY 02/22/17 [Caltrate 600 + D Tablet] Fpdeg-1-Lzch Ethyl Esters 1 GM 1 gm PO DAILY 02/22/17 [Lovaza] Acetaminophen/Butalbital/Caf 1 tab PO DAILY PRN 03/26/17 [Fioricet] Albuterol HFA [Ventolin HFA 90 2 puff IH [id number] #1 puff 03/26/17 mcg/actuation (8 g)] Azithromycin [Zithromax Tri-Esteban] 500 mg PO DAILY #3 tablet 03/26/17 Albuterol HFA [Ventolin HFA 90 1 - 2 puff IH Q6 PRN #1 inhaler 05/21/17 mcg/actuation (8 g)] Albuterol 0.083% [Albuterol 3 ml IH Q4 #100 neb 06/21/17 Sulfate 3 Ml] Guaifenesin 400 mg PO QID #20 tablet 06/21/17 Nebulizer [Aeroeclipse II] 1 each MC DAILY #1 each 06/21/17 Albuterol HFA [Ventolin HFA 90 2 puff IH [id number] PRN #1 inhaler 02/19/18 mcg/actuation (8 g)] Methylprednisolone [Medrol Dosepak] 4 mg PO ASDIR #1 pkg 02/19/18 - Allergies Allergies/Adverse Reactions: Allergies Allergy/AdvReac Type Severity Reaction Status Date / Time garlic Allergy RASH Verified 02/19/18 15:25 tash Allergy RASH Verified 02/19/18 15:25 [email or web address] Allergy RASH Verified 02/19/18 15:25 Wells Criteria for PE - Wells Criteria for Pulmonary Embolism Clinical Signs and Symptoms of DVT: No P.E is #1 Diagnosis, or Equally Likely: No Heart Rate >100: No Immobilization at least 3 days;Surgery previous 4 weeks: No Previous, objectively diagnosed PE or DVT: No Hemoptysis: No Malignancy w/treatment within 6 months, or palliative: No Total Score: 0 Review of Systems ROS Statement: Except As Marked, All Systems Reviewed And Found Negative Constitutional: Negative for: Fever Cardiovascular: Positive for: Chest Pain Respiratory: Positive for: Cough, Shortness of Breath Musculoskeletal: Negative for: Leg Pain (or swelling) Neurological: Negative for: Headache Physical Exam - Reviewed Nursing Documentation Reviewed: Yes Vital Signs Reviewed: Yes - Physical Exam Appears: Positive for: Non-toxic, No Acute Distress Head Exam: Positive for: ATRAUMATIC, NORMOCEPHALIC Skin: Positive for: Normal Color, Warm, Dry Eye Exam: Positive for: Normal appearance, EOMI, PERRL Cardiovascular/Chest: Positive for: Regular Rate, Rhythm. Negative for: Murmur Respiratory: Positive for: Normal Breath Sounds. Negative for: Wheezing, Respiratory Distress Gastrointestinal/Abdominal: Positive for: Normal Exam, Soft. Negative for: Tenderness Back: Positive for: Normal Inspection. Negative for: L CVA Tenderness, R CVA Tenderness Extremity: Positive for: Normal ROM. Negative for: Pedal Edema, Swelling Neurologic/Psych: Positive for: Alert, Oriented (x3) - Laboratory Results Result Diagrams: 02/19/18 16:23 02/19/18 16:23 - ECG ECG Rhythm: Positive for: Normal QRS, Sinus Rhythm (normal), ST/T Changes (uns pecific) Rate: 96 O2 Sat by Pulse Oximetry: 97 (RA) Pulse Ox Interpretation: Normal - Progress Re-evaluation Time: 20:30 Condition: Re-examined, Improved Medical Decision Making Medical Decision Making: Time: 1557 Initial Impression: Shortness of breath. Differential includes but not limited to asthma exacerbation, PE, ACS and CHF. Initial Plan: --EKG --BMP --BTN --Troponin I --Urine dipstick --CBC --D Dimer --Duoneb 3 ml INH --Medrol 125 mg IVP --Peak flow pre/post treatment Scribe Attestation: Documented by Briseyda Burrows, acting as a scribe for Rula Garcia MD. Provider Scribe Attestation: All medical record entries made by the Scribe were at my direction and personally dictated by me. I have reviewed the chart and agree that the record accurately reflects my personal performance of the history, physical exam, medical decision making, and the department course for this patient. I have also personally directed, reviewed, and agree with the discharge instructions and disposition. Disposition - Clinical Impression Clinical Impression: Bronchitis - Patient ED Disposition Is Patient to be Admitted: No Doctor Will See Patient In The: Office Counseled Patient/Family Regarding: Studies Performed, Diagnosis, Need For Followup - Disposition Referrals: Shawn Nicole MD [Family Provider] - Disposition: Routine/Home Disposition Time: 20:30 Condition: GOOD Additional Instructions: PERNELL VAIL, thank you for letting us take care of you today. Your provider was Rula Garcia MD and you were treated for SOB. The emergency medical care you received today was directed at your acute symptoms. If you were prescribed any medication, please fill it and take as directed. It may take several days for your symptoms to resolve. Return to the Emergency Department if your symptoms worsen, do not improve, or if you have any other problems. Please contact your doctor or call one of the physicians/clinics you have been referred to that are listed on the Patient Visit Information form that is included in your discharge packet. Bring any paperwork you were given at discharge with you along with any medications you are taking to your follow up visit. Our treatment cannot replace ongoing medical care by a primary care provider outside of the emergency department. Thank you for [facility] to be part of your care today. If you had an X-Ray or CT scan: A Radiologist will review the ED reading if any change in treatment is needed we will contact you. If you had a blood, urine, or wound culture: It will take several days for the results, if any change in treatment is needed we will contact you. If you had an STI test: It will take 48 hours for the results. Please call after 1 week if you have not heard back. Prescriptions: Albuterol HFA [Ventolin HFA 90 mcg/actuation (8 g)] 2 puff IH [id number] PRN #1 inhaler PRN Reason: Wheezing Methylprednisolone [Medrol Dosepak] 4 mg PO ASDIR #1 pkg Instructions: Acute Bronchitis
[2018-02-19 16:27] LABS: BASO # 0.1 K/uL (0.0-0.2); BASO % 0.8 % (0.0-2.0); EOS # 0.2 K/uL (0.0-0.7); EOS % 2.4 % (0.0-4.0); HEMOGLOBIN 13.7 g/dL (12.0-16.0); LYMPH # 3.5 K/uL (1.0-4.3); MEAN CELL VOLUME 85.6 fl (81.0-99.0); MEAN CORPUSCULAR HEMOGLOBIN 28.7 pg (27.0-31.0); MEAN CORPUSCULAR HGB CONC 33.6 g/dL (33.0-37.0); MEAN PLATELET VOLUME 11.3 fl (7.2-11.7); MONO # 0.5 K/uL (0.0-0.8); MONO % 6.3 % (0.0-10.0); NEUT # 3.9 K/uL (1.8-7.0); NEUT % 47.5 % (50.0-75.0); RBC 4.75 Mil/uL (3.80-5.20); RED CELL DISTRIBUTION WIDTH 13.5 % (11.5-14.5); WHITE BLOOD COUNT 8.2 K/uL (4.8-10.8)
[2018-02-19] MEDS: Albuterol-Ipratrop 3 mg / 0.5 (3 ml) UD INH STA (16:28)
[2018-02-19 16:35] LABS: BLOOD UREA NITROGEN 13 mg/dl (7-17); CALCIUM 9.6 mg/dL (8.4-10.2); GFR NON-AFRICAN AMERICAN > 60
[2018-02-19 16:48] LABS: B-TYPE NATRIURETIC PEPTIDE 57.2 pg/ml (0-900)
[2018-02-19 18:13] VITALS: BP 140/80; RESP 18; TEMP 98.5
[2018-02-19 20:58] VITALS: PULSE 96; O2SAT 97
--- NOTE | 2018-02-20 06:45 | CARD ---
APPROVED REPORT Date of service: 02/19/2018 EKG Measurement Heart [id number] CT 134P43 [id number] <Conclusion> Normal sinus rhythm ST & T wave abnormality, consider inferior ischemia Abnormal ECG
== END 2018-02-19 21:00 | disposition home or self-care (01) ==
LOC: H.ER 15:21
DX: J40 Bronchitis, not specified as acute or chronic (principal); E78.00 Pure hypercholesterolemia, unspecified; I10 Essential (primary) hypertension; Z79.899 Other long term (current) drug therapy; Z85.3 Personal history of malignant neoplasm of breast; Z85.41 Personal history of malignant neoplasm of cervix uteri; J45.909 Unspecified asthma, uncomplicated
CPT/HCPCS: 80048; 83880; 84484; 85025; 85378; 93005; 94640; 96374; 99283; J2930

== ENCOUNTER 2018-05-21 14:30 | Emergency (ER) | payer MEDICAID ==
[2018-05-21 14:43] VITALS: RESP 16
[2018-05-21] MEDS ORDERED: Albuterol-Ipratrop 3 mg / 0.5 (3 ml) UD INH STA (15:33)
--- NOTE | 2018-05-21 15:57 | ED PDOC ---
HPI: Chest Pain Time Seen by Provider: 05/21/18 15:10 Chief Complaint (Nursing): Chest Pain Chief Complaint (Provider): Chest Pain History Per: Patient History/Exam Limitations: no limitations Onset/Duration Of Symptoms: Days (x4) Current Symptoms Are (Timing): Still Present Additional Complaint(s): 57 year old female with pmHx of asthma, HTN, and HCL, arrives to ED for an evaluation of left-sided chest pain for 4 days. Patient states chest pain is associated with her asthma attacks and have been using her inhaler with some alleviation. She reports similar symptoms in the past, however, states that today felt different as if she's "getting punched". Otherwise, patient denies fever, chills, or cough. PCP: Dr. Shawn Nicole Past Medical History Reviewed: Historical Data, Nursing Documentation, Vital Signs Vital Signs: Last Vital Signs Temp 97.7 F 05/21/18 14:35 Pulse 67 05/21/18 14:35 Resp 16 05/21/18 14:35 BP 185/85 H 05/21/18 14:35 Pulse Ox 96 05/21/18 14:35 - Medical History PMH: Asthma, Colonic Polyps, HTN, Hypercholesterolemia, Osteoporosis Denies: Chronic Kidney Disease - Family History Family History: States: Unknown Family Hx - Immunization History Hx Tetanus Toxoid Vaccination: No Hx Influenza Vaccination: Yes Hx Pneumococcal Vaccination: No - Home Medications Home Medications: Ambulatory Orders Medication Instructions Recorded Alendronate [Fosamax] 70 mg PO QD7 12/29/16 Anastrozole 1 mg PO DAILY 12/29/16 Atorvastatin [Lipitor] 20 mg PO DAILY 12/29/16 Bisoprolol/HCTZ [Ziac 10-6.25 mg] 1 tab PO DAILY 12/29/16 Fluticasone Nasal [Flonase] 1 spr NS DAILY PRN 12/29/16 Fluticasone/Salmeterol [Advair 1 each IH DAILY PRN 12/29/16 250-50 Diskus] Aspirin 325 mg PO DAILY 02/22/17 Calcium Carbonate/Vitamin D3 1 each PO DAILY 02/22/17 [Caltrate 600 + D Tablet] Hobsn-8-Mgro Ethyl Esters 1 GM 1 gm PO DAILY 02/22/17 [Lovaza] Acetaminophen/Butalbital/Caf 1 tab PO DAILY PRN 03/26/17 [Fioricet] Albuterol HFA [Ventolin HFA 90 2 puff IH [id number] #1 puff 03/26/17 mcg/actuation (8 g)] Azithromycin [Zithromax Tri-Esteban] 500 mg PO DAILY #3 tablet 03/26/17 Albuterol HFA [Ventolin HFA 90 1 - 2 puff IH Q6 PRN #1 inhaler 05/21/17 mcg/actuation (8 g)] Albuterol 0.083% [Albuterol 3 ml IH Q4 #100 neb 06/21/17 Sulfate 3 Ml] Guaifenesin 400 mg PO QID #20 tablet 06/21/17 Nebulizer [Aeroeclipse II] 1 each MC DAILY #1 each 06/21/17 Albuterol HFA [Ventolin HFA 90 2 puff IH [id number] PRN #1 inhaler 02/19/18 mcg/actuation (8 g)] Methylprednisolone [Medrol Dosepak] 4 mg PO ASDIR #1 pkg 02/19/18 - Allergies Allergies/Adverse Reactions: Allergies Allergy/AdvReac Type Severity Reaction Status Date / Time garlic Allergy RASH Verified 05/21/18 14:33 tash Allergy RASH Verified 05/21/18 14:33 cabazon Allergy RASH Verified 05/21/18 14:33 Review of Systems ROS Statement: Except As Marked, All Systems Reviewed And Found Negative Constitutional: Negative for: Fever, Chills Cardiovascular: Positive for: Chest Pain (left-sided) Respiratory: Negative for: Cough Physical Exam - Reviewed Nursing Documentation Reviewed: Yes Vital Signs Reviewed: Yes - Physical Exam Appears: Positive for: Non-toxic, No Acute Distress Head Exam: Positive for: ATRAUMATIC, NORMAL INSPECTION, NORMOCEPHALIC Skin: Positive for: Normal Color Eye Exam: Positive for: Normal appearance, EOMI, PERRL ENT: Positive for: Normal ENT Inspection. Negative for: Pharyngeal Erythema Neck: Positive for: Normal, Supple Cardiovascular/Chest: Positive for: Regular Rate, Rhythm, Chest Non Tender Respiratory: Positive for: Normal Breath Sounds. Negative for: Wheezing, Respiratory Distress Gastrointestinal/Abdominal: Positive for: Normal Exam, Soft. Negative for: Tenderness Back: Positive for: Normal Inspection. Negative for: L CVA Tenderness, R CVA Tenderness Extremity: Positive for: Normal ROM (upper/lower). Negative for: Pedal Edema, Calf Tenderness Neurologic/Psych: Positive for: Alert, credit and loan collections supervisor II-XII (grossly intact), Oriented, Other (speaking full sentences). Negative for: Motor/Sensory Deficits, Aphasia - Laboratory Results Result Diagrams: 05/21/18 15:35 05/21/18 15:35 - ECG O2 Sat by Pulse Oximetry: 96 (RA) Pulse Ox Interpretation: Normal Medical Decision Making Medical Decision Making: Time: 153 Initial Plan: * EKG * Labs * CXR * Duoneb 3ml INH Time: 1557 --EKG: NSR at 69 BMP. No STT changes. Accession No. : [id number] Patient Name / ID : YARED GIMENEZ / [id number] Exam Date : 05/21/2018 15:42:34 ( Approved ) Study Comment : Sex / Age : F / 57Y Creator : Brayan Briscoe MD Dictator : Brayan Briscoe MD Sewer Bricklayer : Wirer Helper : Brayan Briscoe MD Approver2 : Report Date : 05/21/2018 16:36:19 My Comment : Date of service: 05/21/2018 HISTORY: SOB, CP COMPARISON: 08/28/2016 TECHNIQUE: Chest PA and lateral FINDINGS: LUNGS: No active pulmonary disease. PLEURA: No significant pleural effusion identified. No pneumothorax apparent. CARDIOVASCULAR: No aortic atherosclerotic calcification present. Normal cardiac size. No pulmonary vascular congestion. OSSEOUS STRUCTURES: No significant abnormalities. VISUALIZED UPPER ABDOMEN: Normal. OTHER FINDINGS: Surgical clips over left lateral chest wall, possibly related to breast/axilla. IMPRESSION: No active disease. Scribe Attestation: Documented by Natalia Park, acting as a scribe for Karis Rodrigues MD. Provider Scribe Attestation: All medical record entries made by the Scribe were at my direction and personally dictated by me. I have reviewed the chart and agree that the record accurately reflects my personal performance of the history, physical exam, medical decision making, and the department course for this patient. I have also personally directed, reviewed, and agree with the discharge instructions and disposition. Disposition - Disposition Forms: [place] ([place])
[2018-05-21] MEDS ORDERED: Albuterol-Ipratrop 3 mg / 0.5 (3 ml) UD ONE (16:09)
--- NOTE | 2018-05-21 16:39 | RAD ---
Date of service: 05/21/2018 HISTORY: SOB, CP COMPARISON: 08/28/2016 TECHNIQUE: Chest PA and lateral FINDINGS: LUNGS: No active pulmonary disease. PLEURA: No significant pleural effusion identified. No pneumothorax apparent. CARDIOVASCULAR: No aortic atherosclerotic calcification present. Normal cardiac size. No pulmonary vascular congestion. OSSEOUS STRUCTURES: No significant abnormalities. VISUALIZED UPPER ABDOMEN: Normal. OTHER FINDINGS: Surgical clips over left lateral chest wall, possibly related to breast/axilla. IMPRESSION: No active disease.
[2018-05-21 16:40] LABS: BASO # 0.1 K/uL (0.0-0.2); BASO % 0.7 % (0.0-2.0); EOS # 0.1 K/uL (0.0-0.7); EOS % 1.8 % (0.0-4.0); HEMOGLOBIN 13.6 g/dL (12.0-16.0); LYMPH # 3.1 K/uL (1.0-4.3); LYMPH % 39.3 % (20.0-40.0); MEAN CELL VOLUME 85.4 fl (81.0-99.0); MEAN CORPUSCULAR HEMOGLOBIN 28.4 pg (27.0-31.0); MEAN CORPUSCULAR HGB CONC 33.2 g/dL (33.0-37.0); MEAN PLATELET VOLUME 12.3 fl (7.2-11.7); MONO # 0.5 K/uL (0.0-0.8); MONO % 6.6 % (0.0-10.0); NEUT # 4.1 K/uL (1.8-7.0); NEUT % 51.6 % (50.0-75.0); NRBC % 0.1 % (0.0-0.0); RBC 4.78 Mil/uL (3.80-5.20); RED CELL DISTRIBUTION WIDTH 13.8 % (11.5-14.5); WHITE BLOOD COUNT 7.9 K/uL (4.8-10.8)
[2018-05-21 16:43] LABS: ALB/GLOB RATIO 1.3 (1.0-2.1); ALBUMIN 4.3 g/dL (3.5-5.0); ALT/SGPT 59 U/L (9-52); AST/SGOT 33 U/L (14-36); BLOOD UREA NITROGEN 18 mg/dl (7-17); CALCIUM 9.6 mg/dL (8.4-10.2); GFR NON-AFRICAN AMERICAN > 60
[2018-05-21 16:49] LABS: PROTHROMBIN TIME 11.9 Seconds (9.8-13.1)
[2018-05-21 16:52] LABS: PARTIAL THROMBOPLASTIN TIME 36.1 Seconds (25.6-37.1)
[2018-05-21 17:10] LABS: D DIMER < 200 ng/mlDDU (0-230)
--- NOTE | 2018-05-21 17:28 | ED PDOC ---
- Laboratory Results Result Diagrams: 05/21/18 15:35 05/21/18 15:35 Lab Results: PT 11.9 Seconds (9.8-13.1) 05/21/18 15:35 INR 1.0 05/21/18 15:35 APTT 36.1 Seconds (25.6-37.1) 05/21/18 15:35 D-Dimer, Quantitative < 200 ng/mlDDU (0-230) 05/21/18 15:35 Troponin I < 0.0120 ng/mL (0.00-0.120) 05/21/18 15:35 Total Bilirubin 0.3 mg/dl (0.2-1.3) 05/21/18 15:35 AST 33 U/L (14-36) 05/21/18 15:35 ALT 59 U/L (9-52) H D 05/21/18 15:35 Alkaline Phosphatase 83 U/L (38-126) 05/21/18 15:35 Total Protein 7.5 G/DL (6.3-8.2) 05/21/18 15:35 Albumin 4.3 g/dL (3.5-5.0) 05/21/18 15:35 Globulin 3.2 gm/dL (2.2-3.9) 05/21/18 15:35 Albumin/Globulin Ratio 1.3 (1.0-2.1) 05/21/18 15:35 - ECG O2 Sat by Pulse Oximetry: 96 (RA) - Progress ED Course And Treament: 1726: Stable. AAOx3. Pain free. Took over care from Dr. Rodrigues. Doyle on second trop. Here with chest pain. 1900: Dr. Fernandez to take over care. Doyle repeat trop. Disposition - Clinical Impression Clinical Impression: Chest pain - POA Present On Arrival: None - Disposition Disposition: Transfer of Care Disposition Time: 17:27 Condition: STABLE Patient Signed Over To: Antonio Fernandez
--- NOTE | 2018-05-21 18:53 | CARD ---
APPROVED REPORT Date of service: 05/21/2018 EKG Measurement Heart [id number] [place] 140P46 [id number] <Conclusion> Normal sinus rhythm Moderate voltage criteria for LVH, may be normal variant Borderline ECG
--- NOTE | 2018-05-21 19:26 | ED PDOC ---
- Laboratory Results Result Diagrams: 05/21/18 15:35 05/21/18 15:35 Lab Results: PT 11.9 Seconds (9.8-13.1) 05/21/18 15:35 INR 1.0 05/21/18 15:35 APTT 36.1 Seconds (25.6-37.1) 05/21/18 15:35 D-Dimer, Quantitative < 200 ng/mlDDU (0-230) 05/21/18 15:35 Troponin I < 0.0120 ng/mL (0.00-0.120) 05/21/18 15:35 Total Bilirubin 0.3 mg/dl (0.2-1.3) 05/21/18 15:35 AST 33 U/L (14-36) 05/21/18 15:35 ALT 59 U/L (9-52) H D 05/21/18 15:35 Alkaline Phosphatase 83 U/L (38-126) 05/21/18 15:35 Total Protein 7.5 G/DL (6.3-8.2) 05/21/18 15:35 Albumin 4.3 g/dL (3.5-5.0) 05/21/18 15:35 Globulin 3.2 gm/dL (2.2-3.9) 05/21/18 15:35 Albumin/Globulin Ratio 1.3 (1.0-2.1) 05/21/18 15:35 - ECG O2 Sat by Pulse Oximetry: 96 (RA) Medical Decision Making Medical Decision Making: Time: 1899 Patient was endorsed to provider from Matt Rivas MD. Time: 2104 Second Troponin is negative. pt without chest pain. feels well Followup with Dr. Nicole. Scribe Attestation: Documented by Lopez Chaudhari, acting as a scribe for provider Antonio Fernandez MD. All medical record entries made by the Scribe were at my direction and personally dictated by me. I have reviewed the chart and agree that the record accurately reflects my personal performance of the history, physical exam, medical decision making, and the department course for this patient. I have also personally directed, reviewed, and agree with the discharge instructions and disposition. Disposition Counseled Patient/Family Regarding: Studies Performed, Diagnosis, Need For Followup - Clinical Impression Clinical Impression: Chest pain - POA Present On Arrival: None - Disposition Disposition: Routine/Home Disposition Time: 21:05 Condition: IMPROVED Additional Instructions: follow up with Dr Nicole in 1-2 days return to the ED with any worsening or concerning symptoms Instructions: Chest Pain That Is Not Caused by the Heart (DC) Forms: [employer] (Bengali)
[2018-05-21 21:24] VITALS: BP 132/83; PULSE 62; TEMP 97.5
[2018-05-22 04:47] VITALS: O2SAT 96
== END 2018-05-21 21:24 | disposition home or self-care (01) ==
LOC: H.ER 14:30
DX: R07.89 Other chest pain (principal)